=== PATIENT | male | born 1945 | race African-American/Black ===

== ENCOUNTER 2020-11-08 21:36 | Inpatient (IN) | payer BC, MEDICAID ==
[~2020-11-08] VITALS: Ht 175.3 cm; Wt 64.4 kg
[2020-11-08 23:36] LABS: CLARITY URINE CLEAR (CLEAR); COLOR URINE DARK YELLOW (YELLOW); KETONES URINE TRACE (NEGATIVE); LEUKOCYTE ESTERASE URINE 1+ (NEGATIVE); NITRITE URINE NEGATIVE (NEGATIVE); OCCULT BLOOD URINE TRACE (NEGATIVE); PROTEIN URINE TRACE (NEGATIVE); SPECIFIC GRAVITY URINE 1.026 (1.005-1.030)
[2020-11-09] VITALS (8 sets, daily range): BP systolic 112–152; BP diastolic 54–83
[2020-11-09] MEDS ORDERED: CEPH500T MT (00:17)
[2020-11-09] MEDS ORDERED: CEPHALEXIN 250MG CAPSULE PO NR (00:30)
[2020-11-09] MEDS ORDERED: SODIUM CHLORIDE 0.9% 1,000 ML IV ONE (04:15)
[2020-11-09 04:57] LABS: BASOPHILS % 0.5 % (0.0-2.0); EOSINOPHILS % 3.6 % (0.0-5.0); HEMOGLOBIN. 14.8 g/dL (14.0-18.0); MEAN CORPUSCULAR HEMOGLOBIN 31.5 pg (28.0-32.0); MEAN CORPUSCULAR VOLUME 93.9 fL (80.0-94.0); MEAN PLATELET VOLUME 9.3 fl (7.4-10.4); MONOCYTES % 11.2 % (2.0-8.0); NEUTROPHILS % 42.7 % (40.0-76.0); PLATELET 226 x1000/uL (130-400); RED BLOOD CELL COUNT 4.69 mill/uL (4.7-6.1); RED CELL DISTRIBUTION WIDTH 13.2 % (11.6-14.6)
[2020-11-09 06:22] LABS: CHLORIDE 110 mEq/L (98-107)
[2020-11-09] MEDS ORDERED: LEVETIRACETAM 500MG PREMIX 100 ML IV ONE (07:00)
[2020-11-09] MEDS ORDERED: ONDANSETRON HCL 4MG/2ML INJ IV PRN (10:45)
[2020-11-09] MEDS ORDERED: HYDRALAZINE 20MG/ML VIAL IV PRN (10:45)
[2020-11-09] MEDS ORDERED: ACETAMINOPHEN 650MG SUPP PR PRN (10:45)
[2020-11-09] MEDS ORDERED: MORPHINE SULFATE 2 MG/ML CPJ (NOT FOR IM USE) IV PRN (10:45)
[2020-11-09] MEDS ORDERED: IPRATROPIUM/ALBUTEROL 0.5-3(2.5)MG/3ML NEB NEB PRN (10:45)
[2020-11-09] MEDS ORDERED: DIPHENHYDRAMINE 50MG/ML VIAL IV PRN (10:45)
[2020-11-09] MEDS ORDERED: NALOXONE HCL 0.4MG/ML VIAL IV PRN (11:30)
[2020-11-09] MEDS ORDERED: FAMOTIDINE 20MG/2ML VIAL IV SCH (11:30)
[2020-11-09] MEDS ORDERED: DEXT 5%/0.45% NACL 1000ML 1,000 ML IV SCH (11:30)
[2020-11-09] MEDS ORDERED: LEVETIRACETAM 500 MG in SODIUM CHLORIDE 0.9% 100 ML IV SCH (12:00)
[2020-11-09] MEDS ORDERED: CEFTRIAXONE 1,000 MG in DEXTROSE 5% WATER 50 ML IV SCH (15:00)
[2020-11-09 15:14] LABS: PARTIAL THROMBOPLASTIN TIME 26.9 sec (23.4-31.0); PROTHROMBIN TIME 10.6 sec (9.6-11.0)
[2020-11-09 15:15] LABS: CREATINE KINASE 81 IU/L (39-308)
[2020-11-09 15:16] LABS: CREATINE KINASE MB FRACTION 1.1 ng/mL (0.5-3.6)
[2020-11-09] MEDS ORDERED: LEVETIRACETAM 500MG PREMIX 100 ML IV SCH (21:00)
== END 2020-11-10 00:06 | DRG 70 ==
LOC: ER 21:36 → 5EST 11-09 06:56 → ENRESERV 11-09 08:18
PROVIDERS: ADMIT Internal Medicine; ATTEND Internal Medicine
DX: G93.40 Encephalopathy, unspecified (principal); I62.03 Nontraumatic chronic subdural hemorrhage; N39.0 Urinary tract infection, site not specified; E87.2 Acidosis; Z20.822 Contact with and (suspected) exposure to COVID-19; F17.200 Nicotine dependence, unspecified, uncomplicated; G31.9 Degenerative disease of nervous system, unspecified; F03.90 Unspecified dementia, unspecified severity, without behavioral disturbance, psychotic disturbance, mood disturbance, and anxiety; I10 Essential (primary) hypertension; Z82.49 Family history of ischemic heart disease and other diseases of the circulatory system
CPT/HCPCS: 36415; 70551; 71045; 80053; 81003; 82550; 82553; 83605; 84484; 85025; 86850; 86900; 87426; 93880; 93970; 99285; J0696; J1953; J3490; J7030; J7050; J7060

== ENCOUNTER 2021-08-12 02:52 | Emergency (ER) | payer BC, MEDICAID ==
[~2021-08-12] VITALS: Ht 177.8 cm; Wt 77.0 kg
[~2021-08-12 02:52] MED LIST: CEPH500T MT
[2021-08-12 04:18] LABS: BASOPHILS % 0.5 % (0.0-2.0); EOSINOPHILS % 2.5 % (0.0-5.0); HEMATOCRIT. 49.7 % (42.0-52.0); HEMOGLOBIN. 16.1 g/dL (14.0-18.0); LYMPHOCYTES % 21.6 % (20.0-50.0); MEAN CORPUSCULAR HEMOGLOBIN 29.9 pg (28.0-32.0); MEAN CORPUSCULAR VOLUME 92.4 fL (80.0-94.0); MEAN PLATELET VOLUME 9.1 fl (7.4-10.4); MONOCYTES % 11.2 % (2.0-8.0); NEUTROPHILS % 64.2 % (40.0-76.0); PLATELET 219 x1000/uL (130-400); RED BLOOD CELL COUNT 5.38 mill/uL (4.7-6.1); RED CELL DISTRIBUTION WIDTH 13.1 % (11.6-14.6)
[2021-08-12 04:44] LABS: CHLORIDE 104 mEq/L (98-107)
[2021-08-12 11:24] VITALS: BP 135/78
== END 2021-08-12 11:26 | disposition home or self-care (01) ==
LOC: ER 02:52
DX: M79.604 Pain in right leg (principal); G89.29 Other chronic pain; M19.90 Unspecified osteoarthritis, unspecified site; F03.90 Unspecified dementia, unspecified severity, without behavioral disturbance, psychotic disturbance, mood disturbance, and anxiety
CPT/HCPCS: 36415; 71045; 72170; 80053; 83880; 84484; 85025; 93005; 99285